=== PATIENT | female | born 1980 | race Caucasian/White ===

== ENCOUNTER 2017-03-19 09:21 | Emergency (ER) | payer MEDICAID ==
[~2017-03-19] VITALS: Ht 147.3 cm; Wt 74.8 kg
[~2017-03-19 09:21] MED LIST: ETHI-191 PO; FERR-193 PO; NITR100C7 PO; PREN-385 PO
[2017-03-19 09:33] VITALS: BP 112/90
--- NOTE | 2017-03-19 09:37 | NUR ---
Patient ambulated to bed 4 with family. RN evaluating patient at bedside.
--- NOTE | 2017-03-19 09:38 | NUR ---
37/F PRESENT TO ER C/O R HAND & R UPPER BACK PAIN , BILAT HAND NUMBNESS x ONE WEEK. HX: NONE. DENIES N/V/D; SKIN IS PINK/WARM/DRY; AAOX4 WITH EVEN AND STEADY GAIT; LUNGS CLEAR BL; HR EVEN AND REGULAR; PT DENIES ANY FEVER, CP, SOB, OR COUGH AT THIS TIME; PATIENT STATES PRESSURE PAIN OF 3/10 AT THIS TIME; VSS; PATIENT POSITIONED FOR COMFORT; HOB ELEVATED; BEDRAILS UP X2; BED DOWN. ER MD MADE AWARE OF PT STATUS.
--- NOTE | 2017-03-19 10:10 | NUR ---
Patient being evaluated by DR LLOYD at bedside.
[2017-03-19 10:22] VITALS: BP 114/83
== END 2017-03-19 10:22 | disposition home or self-care (01) ==
LOC: MED 09:21
DX: G56.01 Carpal tunnel syndrome, right upper limb (principal); Z86.2 Personal history of diseases of the blood and blood-forming organs and certain disorders involving the immune mechanism
CPT/HCPCS: 99283